=== PATIENT | female | born 2000 | race Hispanic/Latino ===

== ENCOUNTER 2024-10-08 14:51 | Emergency (ER) | payer BC, OTHER ==
[~2024-10-08] VITALS: Ht 152.4 cm; Wt 59.0 kg
[2024-10-08 15:07] VITALS: TEMP 98.9
[2024-10-08 16:19] LABS: BASOPHILS % 0.3 % (0.0-1.0); HEMATOCRIT 37.9 % (34.2-44.1); HEMOGLOBIN 12.4 g/dL (12.0-16.0); LYMPHOCYTES # (AUTO) 1.4 (1.0-3.2); LYMPHOCYTES % 13.2 % (18.0-39.1); MEAN CORPUSCULAR HEMOGLOBIN 26.6 pg (28-32); MEAN CORPUSCULAR HGB CONC 32.7 g/dL (31-35); MEAN CORPUSCULAR VOLUME 81.3 fL (81-99); MONOCYTES # (AUTO) 0.6 (0.2-0.8); MONOCYTES % 5.4 % (4.4-11.3); NEUTROPHILS # (AUTO) 8.3 (2.1-6.9); NEUTROPHILS % 80.8 % (38.7-80.0); PLATELET COUNT 404 x10e3/uL (140-360); RED BLOOD COUNT 4.66 x10e6/uL (3.6-5.1); RED CELL DISTRIBUTION WIDTH 14.7 % (11.7-14.4); WHITE BLOOD COUNT 10.27 x10e3/uL (4.8-10.8)
[2024-10-08 16:27] LABS: AMPHETAMINES SCREEN,URINE NEGATIVE (NEGATIVE); BENZODIAZEPINES SCREEN,URINE NEGATIVE (NEGATIVE); COCAINE SCREEN,URINE NEGATIVE (NEGATIVE); OPIATES SCREEN,URINE NEGATIVE (NEGATIVE); PHENCYCLIDINE SCREEN,URINE NEGATIVE (NEGATIVE)
[2024-10-08 16:28] LABS: CANNABINOIDS SCREEN,URINE POSITIVE (NEGATIVE); METHADONE SCREEN, URINE NEGATIVE (NEGATIVE)
[2024-10-08 16:29] LABS: BILIRUBIN,URINE NEGATIVE (NEGATIVE); CLARITY,URINE CLEAR (CLEAR); COLOR,URINE YELLOW (YELLOW); GLUCOSE, URINE NEGATIVE (NEGATIVE); KETONES,URINE >=160 (NEGATIVE); LEUKOCYTE ESTERASE ,URINE NEGATIVE (NEGATIVE); NITRITE,URINE NEGATIVE (NEGATIVE); PH,URINE 5.5 (5 - 7); PROTEIN,URINE DIPSTICK 1+ (NEGATIVE); URINE UROBILINOGEN 0.2 mg/dL (0.2 - 1)
[2024-10-08 16:31] LABS: ALANINE AMINOTRANSFERASE 10 IU/L (0-55); ALBUMIN 4.3 g/dL (3.5-5.0); ALBUMIN/GLOBULIN RATIO 1.1 (0.8-2.0); ALKALINE PHOSPHATASE 79 IU/L (40-150); ANION GAP 21.9 mmol/L (8-16); BACTERIA,URINE FEW /HPF; BILIRUBIN,TOTAL 0.6 mg/dL (0.2-1.2); BLOOD UREA NITROGEN 10 mg/dL (7-26); BUN/CREATININE RATIO 14 (6-25); CALCIUM 9.7 mg/dL (8.4-10.2); CARBON DIOXIDE 15 mmol/L (22-29); CHLORIDE 104 mmol/L (98-107); CREATININE, SERUM 0.73 mg/dL (0.57-1.11); EPITHELIAL CELLS,URINE MODERATE /LPF; EST GLOMERULAR FILTRATION RATE 117 ML/MIN (>=60); GLUCOSE 76 mg/dL (74-118); MUCUS,URINE FEW; POTASSIUM 3.9 mmol/L (3.5-5.1); RBC,URINE 0-5 /HPF (0-5); SODIUM 137 mmol/L (136-145); TOTAL PROTEIN 8.1 g/dL (6.5-8.1); WBC,URINE (MAN) 0-5 /HPF (0-5)
[2024-10-08] MEDS: SODIUM CHLORIDE 0.9% 1000ML 1,000 ML IV STA (16:32)
[2024-10-08] MEDS: ONDANSETRON HCL INJ 2MG/ML 2ML 2 MG/ML VIAL IV STA (16:32)
[2024-10-08] MEDS ORDERED: PANTOPRAZOLE SO40 MG PO (16:55)
[2024-10-08] MEDS ORDERED: ONDANSETRON ODT4 MG PO (16:55)
[2024-10-08 16:59] VITALS: PULSE 82; RESP 16; O2SAT 100
== END 2024-10-08 17:10 | disposition home or self-care (01) ==
LOC: ER 15:24
DX: R11.2 Nausea with vomiting, unspecified (principal); R10.9 Unspecified abdominal pain; F41.9 Anxiety disorder, unspecified; F31.9 Bipolar disorder, unspecified; F17.210 Nicotine dependence, cigarettes, uncomplicated
CPT/HCPCS: 36415; 80053; 80307; 81001; 84702; 85025; 99283; J2405; J2470; J7030